=== PATIENT | female | born 1975 | race Asian ===

== ENCOUNTER 2018-03-15 18:05 | Emergency (ER) | payer OTHER ==
[~2018-03-15] VITALS: Ht 152.4 cm; Wt 65.8 kg
[2018-03-15] MEDS ORDERED: ONDANSETRON 4 MG/2 ML VIAL IV ONE (18:30)
[2018-03-15] MEDS ORDERED: IV NORMAL SALINE 1000 ML BAG IV ONE (18:30)
[2018-03-15] MEDS ORDERED: ONDANSETRON 4 MG/2 ML VIAL ONE (18:41)
[2018-03-15 18:42] LABS: BASOPHILS % (AUTO) 0.5 % (0.0-2.0); EOSINOPHILS # (AUTO) 0.2 K/uL (0.0-0.7); EOSINOPHILS % (AUTO) 2.4 % (0.0-7.0); LYMPHOCYTES # (AUTO) 2.1 K/uL (20.0-40.0); LYMPHOCYTES % (AUTO) 24.1 % (20.5-51.5); MEAN CORPUSCULAR HEMOGLOBIN 32.9 uug (24.7-32.8); MEAN CORPUSCULAR HGB CONC 34 g/dL (32.3-35.6); MEAN CORPUSCULAR VOLUME 95.9 fL (75.5-95.3); MONOCYTES # (AUTO) 0.5 K/uL (2.0-10.0); MONOCYTES % (AUTO) 6.2 % (0.0-11.0); NEUTROPHILS # (AUTO) 5.7 K/uL (1.8-8.9); NEUTROPHILS % (AUTO) 66.8 % (38.5-71.5); PLATELET COUNT (AUTO) 202 K/uL (179-408); RED BLOOD CELL COUNT(AUTO) 3.96 MIL/uL (3.63-4.92); WHITE BLOOD COUNT (AUTO) 8.5 K/uL (3.8-11.8)
[2018-03-15 18:47] LABS: CREATININE 0.8 mg/dL (0.6-1.3)
[2018-03-15 18:52] LABS: BILIRUBIN,DIRECT 0.1 mg/dL (0.0-0.2); BILIRUBIN,TOTAL 0.4 mg/dL (0.2-1.0); TOTAL PROTEIN, SERUM 7.8 g/dL (6.4-8.2)
[2018-03-15 19:17] LABS: *BILIRUBIN,URIN NEGATIVE (NEGATIVE); *BLOOD, URINE NEGATIVE (NEGATIVE); *COLOR,URINE YELLOW (YELLOW); *KETONES,URINE 2+ (NEGATIVE); *PROTEIN,URINE NEGATIVE (NEGATIVE); *UROBILINOGEN,URINE 0.2 E.U./dl (NORMAL); LEUKOCYTE ESTERASE ,URINE NEGATIVE (NEGATIVE); NITRITE, URINE NEGATIVE (NEGATIVE); UGLUCOSE NEGATIVE (NEGATIVE)
[2018-03-15 19:19] LABS: *URINE HCG, QUAL NEGATIVE (NEGATIVE)
[2018-03-15 19:24] LABS: *CLARITY,URINE SLIGHTLY HAZY (CLEAR)
[2018-03-15 19:26] LABS: MUCUS,URINE MODERATE /LPF (0-FEW); RBC,URINE 0-3 /HPF (0-3); SQUAMOUS EPITHELIAL CELL,UR MODERATE /HPF (NONE SEEN); URINE AMORPHOUS PHOSPHATES FEW /HPF; WBC,URINE 0-3 /HPF (0-3)
--- NOTE | 2018-03-15 19:30 | NUR ---
PATIENT STATES "I FEEL ALOT BETTER NOW."
--- NOTE | 2018-03-15 19:40 | NUR ---
IV removed. Catheter intact and site benign. Pressure and 4x4 gauze applied to site. No bleeding noted.
--- NOTE | 2018-03-15 19:42 | NUR ---
Patient discharged to home in stable conditon WITH TAKING PATIENT HOME. Written and verbal after care instructions given. Patient verbalizes understanding of instructions. WALKED OUT OF ER WITH NO DISTRESS NOTED
[2018-03-15 19:43] VITALS: BP 110/75
== END 2018-03-15 19:43 | disposition home or self-care (01) ==
LOC: ER 18:07
DX: R10.13 Epigastric pain (principal)
CPT/HCPCS: 36415; 83690; 84703; 85025; A4663; J2405; J7030